=== PATIENT | male | born 1985 | race Caucasian/White ===

== ENCOUNTER 2018-09-28 19:47 | Emergency (ER) | payer SELFPAY ==
--- NOTE | 2018-09-28 20:05 | PDOC ---
Rapid Medical Evaluation Chief Complaint: Penile Drainage Time Seen by Provider: 09/28/18 19:57 Medical Evaluation: 09/28/18 20:00 I have performed a brief in-person evaluation of this patient. The patient presents with a chief complaint of: partner + Chlamydia documented 3 days ago with + treatment. Came to receive treatment himself with c/o pain and drainage. Pertinent physical exam findings: well appearing. I have ordered the following: UA / Chlamydia/GC The patient will proceed to the ED for further evaluation. Discharge Disposition - Diagnosis STD exposure - Referrals - Patient Instructions - Post Discharge Activity
[2018-09-28] MEDS ORDERED: AZITHROMYCIN 250 MG TABLET PO ONE (20:36)
[2018-09-28] MEDS ORDERED: AZITHROMYCIN 500 MG TABLET ONE (20:39)
[2018-09-28] MEDS ORDERED: LIDOCAINE HCL 1%, 10 MG/ML (20ML VIAL) ONE (20:39)
--- NOTE | 2018-09-28 20:42 | PDOC ---
History of Present Illness - General Chief Complaint: Penile Drainage Stated Complaint: PERSONAL Time Seen by Provider: 09/28/18 19:57 - History of Present Illness Initial Comments: 09/28/18 20:39 32-year-old male without comorbidities presents for evaluation after his sexual partner was tested positive for chlamydia he has no symptoms. Past History - Past Medical History Allergies/Adverse Reactions: Allergies Allergy/AdvReac Type Severity Reaction Status Date / Time No Known Allergies Allergy Verified 09/28/18 20:38 Review of Systems - Review of Systems Constitutional: Yes: See HPI. No: Fever *Physical Exam - Physical Exam Comments: 09/28/18 20:40 HEAD: NC/AT MS: Full ROM in all joints without edema NEUROLOGIC: No gross sensory or motor deficits, NVID SKIN: Normal color and temperature no lesions or rashes Medical Decision Making - Medical Decision Making 09/28/18 20:40 Patient has declined HIV and syphilis testing. He just wants to be treated for gonorrhea and chlamydia. I will provide this for him and have him follow-up with his PCP testing was done *DC/Admit/Observation/Transfer Diagnosis at time of Disposition: STD exposure - Discharge Dispostion Disposition: HOME Condition at time of disposition: Stable Decision to Admit order: No - Referrals Referrals: [facility] [Provider Group] - Patient Instructions Printed Discharge Instructions: Gonorrhea, DI for Gonorrhea, Chlamydia: The Silent STD, How to Detect and Treat STDs, Facts About Sexually Transmitted Infections Additional Instructions: Treated for gonorrhea and chlamydia today please follow-up with HER FOR FURTHER EVALUATION AND TREATMENT OPTIONS AND RETURN TO THE EMERGENCY ROOM SHOULD YOU HAVE FURTHER ISSUES. - Post Discharge Activity
== END 2018-09-28 20:48 | disposition home or self-care (01) ==
LOC: JERFT 19:47
DX: Z20.2 Contact with and (suspected) exposure to infections with a predominantly sexual mode of transmission (principal)
CPT/HCPCS: 36415; 87491; 87591; 99281-25